=== PATIENT | female | born 1990 | race Caucasian/White ===

== ENCOUNTER 2023-08-06 11:24 | Emergency (ER) | payer MEDICAID ==
[~2023-08-06] VITALS: Ht 170.2 cm; Wt 105.0 kg
[2023-08-06 11:43] VITALS: O2SAT 100
[2023-08-06] MEDS: ACETAMINOPHEN 325MG TABLET PO STA (12:45)
[2023-08-06] MEDS: SODIUM CHLORIDE 0.9% 1,000 ML IV ONE (12:45)
[2023-08-06] MEDS: ONDANSETRON HCL 4MG/2ML INJ IV STA (13:13)
[2023-08-06] MEDS: KETOROLAC 30MG/ML VIAL IV STA (13:13)
[2023-08-06 14:17] VITALS: BP 126/84; PULSE 74; RESP 16; TEMP 98.4
== END 2023-08-06 14:18 | disposition home or self-care (01) ==
LOC: ER 11:24
DX: G43.909 Migraine, unspecified, not intractable, without status migrainosus (principal)
CPT/HCPCS: 81025; 96361; 96374; 96375; 99284; J1885; J2405; J7030; Z7610 ×2